=== PATIENT | female | born 1950 | race African-American/Black ===

== ENCOUNTER 2017-01-13 10:45 | Inpatient (IN) | payer OTHER ==
--- NOTE | 2017-01-13 07:07 | HP ---
History & Physical Update - History History: No Change - Physical Physical: No Change - Assessment Assessment: No Change - Plan Plan: No Change (Low back pain radiating down left leg (butocks/thigh). Elective L4/5 TLIF)
[2017-01-13] MEDS ORDERED: GABAPENTIN 400 MG CAPSULE (FP) PO ONE (12:49)
[2017-01-13] MEDS ORDERED: CEFAZOLIN 2 GM in DEXTROSE 5%-WATER - 100 ML IVPB ONE (12:49)
[2017-01-13] MEDS ORDERED: oxyCODONE HCL 10 MG SUSTAINED ACTING TABLET PO STA (12:49)
[2017-01-13] MEDS ORDERED: MIDAZOLAM HCL 2 MG/2 ML SINGLE DOSE VIAL ONE ×2 (13:49→14:28)
[2017-01-13] MEDS ORDERED: THROMBIN (BOVINE) 5,000 UNIT VIAL TP ONE ×2 (13:55→15:24)
[2017-01-13] MEDS ORDERED: LIDOCAINE HCL 1%, 10 MG/ML (20ML VIAL) ONE (13:55)
[2017-01-13] MEDS ORDERED: LIDOCAINE 1%/EPI 1:100000 (20 ML MULTI DOSE VIAL) ONE (13:55)
[2017-01-13] MEDS ORDERED: BUPIVACAINE HCL/PF 2.5 MG/ML - 30 ML VIAL IJ ONE (13:55)
[2017-01-13] MEDS ORDERED: ceFAZolin SODIUM 1 GM VIAL ONE (14:33)
[2017-01-13] MEDS ORDERED: LIDOCAINE 1%/EPI 1:100000 (50 ML MULTI DOSE VIAL) INF ONE (15:21)
[2017-01-13] MEDS ORDERED: GELATIN SPONGE,ABSORBABLE 1 GM PACKET TP ONE (15:24)
[2017-01-13] MEDS ORDERED: BUPIVACAINE HCL/PF 0.25% (2.5MG/ML) 10 ML VIAL IJ ONE (15:50)
[2017-01-13] MEDS ORDERED: LIDOCAINE HCL 1%, 10 MG/ML (50 mL VIAL) IJ ONE (16:03)
[2017-01-13] MEDS ORDERED: oxyCODONE HCL 5 MG TABLET PO PRN ×4 (16:12→21:44)
[2017-01-13] MEDS ORDERED: ONDANSETRON 4 MG/2 ML VIAL IVPUSH PRN ×2 (16:12→16:20)
[2017-01-13] MEDS ORDERED: LACTATED RINGERS SOLUTION 1,000 ML IV SCH ×2 (16:15→16:30)
--- NOTE | 2017-01-13 16:17 | OP ---
Operative Note - Note: Operative Date: 01/13/17 Pre-Operative Diagnosis: L4/5 spondylolithesis Operation: L4/5 TLIF, allograft implant, neuromonitoring Post-Operative Diagnosis: Same as Pre-op Surgeon: Andre Howard Insurance Adjustor: Sadiq Cintron Anesthesiologist/INDUSTRIAL PRODUCTION MANAGER: Lizzie Travis Anesthesia: Spinal Estimated Blood Loss (mls): 30 Fluid Volume Replaced (mls): 1,200 Operative Report Dictated: Yes
[2017-01-13] MEDS ORDERED: ACETAMINOPHEN 325 MG TABLET (FP) PO PRN (16:19)
--- NOTE | 2017-01-13 16:19 | SURG ---
Surgery Global Cto Note Global Cto: Sadiq Cintron PA-C Date of Service: 01/13/17 Diagnosis: L4/5 spondylolithesis Procedure: Transforaminal lumbar (L4/5) interbody fusion / instrumentation / decompression , allograft implant, neuromonitoring I was present for the entirety of the operative procedure. For further detail, please refer to operative report. Visit type - Case Type Case Type: Scheduled Admission - New patient This patient is new to me today: Yes Date on this admission: 01/13/17
[2017-01-13] MEDS ORDERED: ACETAMINOPHEN 325 MG TABLET (FP) PO SCH (16:30)
[2017-01-13] MEDS: KETOROLAC TROMETHAMINE 30 MG/1 ML VIAL IVPUSH PRN ×2 (16:37→16:41)
[2017-01-13] MEDS: traMADol HCL 50 MG TABLET PO SCH ×2 (16:54→17:50)
[2017-01-13 17:22] VITALS: BP 133/71; PULSE 80; TEMP 98.7
[2017-01-13] MEDS ORDERED: INSULIN DETEMIR 100 UNITS/ML MDV SQ SCH (22:00)
[2017-01-13] MEDS ORDERED: GABAPENTIN 400 MG CAPSULE (FP) PO SCH (22:00)
[2017-01-13] MEDS ORDERED: ceFAZolin 2 GRAM PREMIX BAG IVPB SCH (22:00)
[2017-01-13] MEDS ORDERED: diazePAM 2 MG TABLET PO SCH (22:00)
[2017-01-13] MEDS ORDERED: amLODIPine BESYLATE 10 MG TABLET (FP) PO SCH (22:00)
--- NOTE | 2017-01-14 06:59 | PN ---
Progress Note (short form) - Note Progress Note: Informed by patient's RN the following events transpired last night resulting her signing out AMA. RN spoke with Dr. Howard. At 8:35, pt's requested to seed corn production manager. When I went into the room, pt reports she is "in a lot of pain", when asked at what level, she started saying we aren't addressing her pain and she doesn't trust us here and she was going to leave. I told pt. I would check with her nurse and check her orders to see what she could have for pain. Pt. continued to say she was leaving and started to get dressed. I asked the pt. to please be patient as I was going to call anesthesiologist production artist for pain med orders. At 9pm, I spoke with Dr. Machado, and got order for Oxycodone. Pt walked to elevator, dressed in street clothes, saying she was leaving. I explained to her, that she should come back to her room and that I had an order for Oxycodone for her. She got in the elevator, RN and myself were in the elevator keeping the door open to prevent her from leaving the unit. She was agitated and paranoid, continued to tell us to get away from her because she didn't trust us. She was on the phone with her sister Shelley, who I spoke with, explaining to her that our goal was to get pt back to her room and medicate her for pain, Shelley said she was coming to the hospital ( from the [facility]). She reported the pt has "mental issues and is manipulative". After about 10-15 minutes of attempting to get pt out of the elevator, she went down the yanes, gait was steady, had cane in her hand (not using it) and carrying her bag of belongings. We attempted to have her sit in the wheelchair but she refused. She sat in ASU, I repeatedly offered her pain meds, her Neurontin and her standing Valium order, she said she wouldn't take them from us because we might be trying to poison her. She continued to say she was leaving. Pt's behavior was escalating with her nurse and myself. I asked Nirav from security to stay with the pt. along with her RN. I removed myself from the area and called Dr. Howard, I explained to him all of the above. I told him we were attempting to convince her to stay in the hospital, but if she refused, would have her sign out AMA. A little before 10pm, I asked another RN to give her, Oxycodone, Valium and Neurontin, and the pt took them. At 10pm, pt's sister , brother in law and niece arrived. They spoke with pt, they were unable to convince pt to stay. Shelley asked to speak with Dr. Howard, I called him and he spoke with Shelley and the Pt. At 10:15pm, pt. signed AMA paperwork, she and family were escorted out by security. Initialized on 01/14/17 00:52 - END OF NOTE <Sadiq Cintron - Last Filed: 01/14/17 06:56> - Note Progress Note: Events of last night noted I spoke to the patient and made repeated attempts to ask her to stay Patient refused and signed out AMA I called the patient in the AM when she was at home and she was safe and confortable <Andre Howard - Last Filed: 01/15/17 11:07>
[2017-01-14] MEDS ORDERED: PATIENT'S OWN MEDICATION (NON-FORMULARY) (Dapagliflozin Propanediol [Farxiga] 5 MG) PO SCH (10:00)
[2017-01-14] MEDS ORDERED: ATENOLOL 50 MG TABLET (FP) PO SCH (10:00)
[2017-01-14] MEDS ORDERED: ASPIRIN COATED 81 MG TABLET.EC PO SCH (10:00)
[2017-01-14] MEDS ORDERED: DULoxetine HCL 60 MG CAPSULE.DR PO SCH ×2 (10:00)
[2017-01-14] MEDS ORDERED: HYDROCHLOROTHIAZIDE 25 MG TABLET (FP) PO SCH (10:00)
[2017-01-14] MEDS ORDERED: LOSARTAN POTASSIUM 50 MG TABLET (FP) PO SCH (10:00)
[2017-01-14] MEDS ORDERED: DULoxetine HCL 30 MG CAPSULE.DR (FP) PO SCH (10:00)
[2017-01-14] MEDS ORDERED: PATIENT'S OWN MEDICATION (NON-FORMULARY) (Losartan/Hydrochlorothiazide [Losartan-Hctz 100- PO SCH (10:00)
[2017-01-14] MEDS ORDERED: BUPROPION HCL 450 MG PO SCH (10:00)
--- NOTE | 2017-01-14 10:51 | OP ---
DATE OF OPERATION: 01/13/2017 PREOPERATIVE DIAGNOSES: 1. Spinal stenosis, L4-L5. 2. Spondylolisthesis, L4-L5. POSTOPERATIVE DIAGNOSES: 1. Spinal stenosis, L4-L5. 2. Spondylolisthesis, L4-L5. PROCEDURES PERFORMED: 1. Transforaminal lumbar interbody fusion, L4-L5. 2. Placement of prosthetic cage. 3. Placement of instrumentation. 4. Hemilaminectomy. SURGEON: Andre Howard MD ABATTOIR MANAGER: GEOFFREY Preston ESTIMATED BLOOD LOSS: 50 mL. INTRAVENOUS FLUIDS: Per Anesthesia. COMPLICATIONS: There were none. ANESTHESIA: Spinal. DISPOSITION: The patient was brought to the PACU in stable condition. INDICATION FOR SURGERY: The patient is a 66-year-old female who has been suffering from pain from her back down her leg. X-rays and MRI were completed which noted that she had spinal stenosis at L4-5 secondary to a spondylolisthesis. She had gone through an exhaustive course of treatment for this, which included medications, physical therapy, as well as injections. Unfortunately, her pain continued to persist, despite all of this. At this point, risks, benefits, and alternatives were discussed, and the patient consented to surgery. OPERATIVE NOTE: The patient was brought to the operating room by the Anesthesia staff. After appropriate patient identification was performed, spinal anesthesia was given. The patient was able to position herself prone onto the OR table with all areas of bony prominences well padded at this time. The C-arm was brought in and the L4 and L5 pedicles were marked off. Lidocaine with epinephrine of 10 mL was injected into her back at this time. Her back was prepped and draped in a sterile manner. At this point a timeout was completed. An incision was made bilaterally over the L4 and L5 pedicles. Dissection was carried down to the fascia and the fascia was split open at this time. The C-arm was brought in, and under C-arm guidance, trocars were advanced into both the L4 and the L5 pedicles. Through the trocars, wires were inserted, tap was performed, and screws were inserted. On the left-hand side, retractor blades were set up to expose the L4-5 facet joint. The facet joint was removed. The disk space was entered using a series of pituitaries, Kerrisons and curettes. A diskectomy was completed. The hemilaminectomy was completed at this time. The endplates were decorticated. Bone graft was laid down. A cage filled with bone graft was placed in. Next, 2.0 heads were placed over the screws. A earl was applied. Caps and compression were applied. On the right-hand side, a earl was measured and placed in. Caps and compression were applied. AP and lateral x-rays confirmed the instrumentation to be in good position. All bleeding was well controlled at this time. The fascia was closed with a number 1 Vicryl suture. EXPAREL was injected. The subcutaneous tissues were closed with 2-0 Vicryl suture. The skin was closed with 3-0 Monocryl suture. Dermabond was applied. Steri-Strips were applied. A sterile dressing was applied. The patient was placed supine on the OR bed and brought to the PACU in stable condition. Dylan [id number]
== END 2017-01-13 22:30 | disposition home or self-care (01) | DRG 460 ==
LOC: FM/S 12:17
PROVIDERS: ADMIT Orthopaedic Surgery Orthopaedic Surgery of the Spine; ATTEND Orthopaedic Surgery Orthopaedic Surgery of the Spine
PROC: 0SB20ZZ Excision of Lumbar Vertebral Disc, Open Approach (ICD-10-PCS; 2017-01-13)
PROC: 0SG00AJ Fusion of Lumbar Vertebral Joint with Interbody Fusion Device, Posterior Approach, Anterior Column, Open Approach (ICD-10-PCS; principal; 2017-01-13 14:12)
DX: M48.061 Spinal stenosis, lumbar region without neurogenic claudication (principal); M43.16 Spondylolisthesis, lumbar region
CPT/HCPCS: 72100-TC; 76001-TC; 94760